=== PATIENT | female | born 1995 | race Two or more races ===

== ENCOUNTER 2021-12-03 17:05 | Emergency (ER) | payer OTHER ==
[~2021-12-03] VITALS: Ht 165.1 cm; Wt 52.2 kg
[2021-12-03] MEDS ORDERED: ZOFRAN8 MG PO (19:48)
== END 2021-12-03 20:06 | disposition home or self-care (01) ==
LOC: ER 17:05
DX: O21.0 Mild hyperemesis gravidarum (principal); Z3A.01 Less than 8 weeks gestation of pregnancy

== ENCOUNTER 2021-12-29 06:15 | Day surgery (SDC) | payer OTHER ==
[~2021-12-29 06:15] MED LIST: ZOFRAN8 MG PO
== END 2021-12-29 17:20 | disposition home or self-care (01) ==
LOC: CIR.AMB 06:15
PROVIDERS: ATTEND Obstetrics & Gynecology
DX: O02.1 Missed abortion (principal); Z20.822 Contact with and (suspected) exposure to COVID-19; J45.909 Unspecified asthma, uncomplicated; F12.90 Cannabis use, unspecified, uncomplicated

== ENCOUNTER 2022-06-21 13:44 | Emergency (ER) | payer OTHER ==
[~2022-06-21] VITALS: Ht 165.1 cm; Wt 51.3 kg
== END 2022-06-21 17:39 | disposition home or self-care (01) ==
LOC: ER 13:44
DX: O20.8 Other hemorrhage in early pregnancy (principal); O26.851 Spotting complicating pregnancy, first trimester; Z3A.08 8 weeks gestation of pregnancy; O36.80X0 Pregnancy with inconclusive fetal viability, not applicable or unspecified

== ENCOUNTER 2022-07-20 08:50 | Outpatient (CLI) | payer OTHER ==
[~2022-07-20 08:50] MED LIST changes: +PRENATALES
== END 2022-07-20 10:25 | disposition home or self-care (01) ==
LOC: PRENATAL 08:50
PROVIDERS: ATTEND Obstetrics & Gynecology Maternal & Fetal Medicine
DX: O36.80X0 Pregnancy with inconclusive fetal viability, not applicable or unspecified (principal); Z36 Encounter for antenatal screening of mother; Z14.8 Genetic carrier of other disease; Z3A.12 12 weeks gestation of pregnancy

== ENCOUNTER 2022-09-22 16:03 | Outpatient (CLI) | payer OTHER | END 2022-09-22 16:50 | disposition home or self-care (01) | LOC: PRENATAL 16:03 | PROVIDERS: ATTEND Obstetrics & Gynecology Maternal & Fetal Medicine | DX: O35.9XX0 Maternal care for (suspected) fetal abnormality and damage, unspecified, not applicable or unspecified (principal); O35.3XX0 Maternal care for (suspected) damage to fetus from viral disease in mother, not applicable or unspecified; Z3A.21 21 weeks gestation of pregnancy ==

== ENCOUNTER 2022-11-10 15:27 | Outpatient (CLI) | payer OTHER | END 2022-11-10 17:00 | disposition home or self-care (01) | LOC: PRENATAL 15:27 | PROVIDERS: ATTEND Obstetrics & Gynecology Maternal & Fetal Medicine | DX: O26.849 Uterine size-date discrepancy, unspecified trimester (principal); O44.00 Complete placenta previa NOS or without hemorrhage, unspecified trimester; Z3A.28 28 weeks gestation of pregnancy ==

== ENCOUNTER 2022-12-22 15:20 | Outpatient (CLI) | payer OTHER | END 2022-12-22 16:45 | disposition home or self-care (01) | LOC: PRENATAL 15:20 | PROVIDERS: ATTEND Obstetrics & Gynecology Maternal & Fetal Medicine | DX: O36.8199 Decreased fetal movements, unspecified trimester, other fetus (principal); Z3A.34 34 weeks gestation of pregnancy ==

== ENCOUNTER 2022-12-31 05:02 | Outpatient (CLI) | payer OTHER | END 2023-01-01 17:27 | disposition home or self-care (01) | LOC: OBS/DEL 05:02 | PROVIDERS: ATTEND Obstetrics & Gynecology | DX: O47.03 False labor before 37 completed weeks of gestation, third trimester (principal); N93.0 Postcoital and contact bleeding; Z3A.35 35 weeks gestation of pregnancy; Z20.822 Contact with and (suspected) exposure to COVID-19 ==

== ENCOUNTER 2023-01-02 12:00 | Outpatient (CLI) | payer OTHER | END 2023-01-02 20:00 | disposition home or self-care (01) | LOC: OBS/DEL 12:00 | PROVIDERS: ATTEND Obstetrics & Gynecology | DX: O26.893 Other specified pregnancy related conditions, third trimester (principal); M25.572 Pain in left ankle and joints of left foot; S92.355A Nondisplaced fracture of fifth metatarsal bone, left foot, initial encounter for closed fracture; W18.39XA Other fall on same level, initial encounter; Y93.01 Activity, walking, marching and hiking; Y92.89 Other specified places as the place of occurrence of the external cause; Y99.8 Other external cause status; Z3A.36 36 weeks gestation of pregnancy ==

== ENCOUNTER 2023-01-04 10:27 | Emergency (ER) | payer OTHER ==
[~2023-01-04] VITALS: Ht 165.1 cm; Wt 63.5 kg
== END 2023-01-04 17:37 | disposition home or self-care (01) ==
LOC: ER 10:27
DX: O26.893 Other specified pregnancy related conditions, third trimester (principal); Z3A.33 33 weeks gestation of pregnancy; S92.352A Displaced fracture of fifth metatarsal bone, left foot, initial encounter for closed fracture; X58.XXXA Exposure to other specified factors, initial encounter; Y93.9 Activity, unspecified; Y92.9 Unspecified place or not applicable; Y99.9 Unspecified external cause status; R10.2 Pelvic and perineal pain

== ENCOUNTER 2023-01-04 12:17 | Outpatient (CLI) | payer OTHER | END 2023-01-04 14:54 | disposition designated cancer center or children's hospital (05) | LOC: OBS/DEL 12:17 | PROVIDERS: ATTEND Obstetrics & Gynecology | DX: S92.352A Displaced fracture of fifth metatarsal bone, left foot, initial encounter for closed fracture (principal); W19.XXXA Unspecified fall, initial encounter; Y93.89 Activity, other specified; Y92.89 Other specified places as the place of occurrence of the external cause; Y99.8 Other external cause status ==

== ENCOUNTER 2023-01-12 13:30 | Inpatient (IN) | payer OTHER ==
[~2023-01-12] VITALS: Ht 165.1 cm; Wt 67.1 kg
[2023-01-23] MEDS ORDERED: VALACYCLOVIR500 MG PO (06:52)
== END 2023-01-25 16:02 | disposition home or self-care (01) | DRG 807 ==
LOC: LDR 01-23 06:01 → OB/GYN 01-23 06:01 → LDR 01-30 13:30
PROVIDERS: ADMIT Obstetrics & Gynecology; ATTEND Obstetrics & Gynecology
PROC: 10E0XZZ Delivery of Products of Conception, External Approach (ICD-10-PCS; principal; 2023-01-23)
PROC: 0UQMXZZ Repair Vulva, External Approach (ICD-10-PCS; 2023-01-23)
PROC: 4A1HXCZ Monitoring of Products of Conception, Cardiac Rate, External Approach (ICD-10-PCS; 2023-01-23)
PROC: 3E033VJ Introduction of Other Hormone into Peripheral Vein, Percutaneous Approach (ICD-10-PCS; 2023-01-23)
PROC: 3E0P7VZ Introduction of Hormone into Female Reproductive, Via Natural or Artificial Opening (ICD-10-PCS; 2023-01-23)
DX: O71.82 Other specified trauma to perineum and vulva (principal); Z37.0 Single live birth; Z3A.39 39 weeks gestation of pregnancy; Z20.822 Contact with and (suspected) exposure to COVID-19

== ENCOUNTER 2024-03-06 17:47 | Emergency (ER) | payer OTHER ==
[~2024-03-06] VITALS: Ht 165.1 cm; Wt 52.2 kg
[~2024-03-06 17:47] MED LIST changes: +VALACYCLOVIR500 MG PO
[2024-03-06] MEDS ORDERED: METHYLPREDNISOLONE SOD SUCC 125 MG VIAL IM STA (19:19)
== END 2024-03-06 20:28 | disposition home or self-care (01) ==
LOC: ER 17:48
DX: L50.9 Urticaria, unspecified (principal)

== ENCOUNTER 2025-06-01 18:24 | Emergency (ER) | payer OTHER ==
[~2025-06-01] VITALS: Ht 165.1 cm; Wt 49.9 kg
[2025-06-01 20:33] LABS: BASO % 0.4 % (0.1-1.2); EOS # 0.27 (0.04-0.54); EOS % 2.5 % (0.7-7.0); LYMPH # 3.61 (1.18-3.74); LYMPH % 33.7 % (19.3-53.1); MEAN PLATELET VOLUME 9.40 fl (9.4-12.4); MONO # 0.71 (0.24-0.82); MONO % 6.6 % (4.7-12.5); NEUT # 6.05 (1.56-6.13); NEUT % 56.5 % (34.0-71.1); RED CELL DISTRIBUTION WIDTH 11.9 % (11.6-14.4)
[2025-06-01 21:07] LABS: COVID-19 AG NEGATIVE (NEGATIVE)
[2025-06-01] MEDS ORDERED: ACETAMINOPHEN500 M1 PO (22:48)
[2025-06-01] MEDS ORDERED: GILTUSS COUGH-118 M1 PO (22:48)
[2025-06-01] MEDS ORDERED: AZITHROMYCIN500 MG PO (22:49)
== END 2025-06-01 23:05 | disposition home or self-care (01) ==
LOC: ER 18:25
PROVIDERS: Preventive Medicine Public Health & General Preventive Medicine
DX: B34.9 Viral infection, unspecified (principal); Z20.822 Contact with and (suspected) exposure to COVID-19; Z87.09 Personal history of other diseases of the respiratory system